=== PATIENT | female | born 1990 | race Caucasian/White ===

== ENCOUNTER 2017-11-23 09:13 | Day surgery (SDC) | payer OTHER ==
[~2017-11-23 09:13] MED LIST: CEFAZOLIN 2 GM/50 ML (PMX) 50 ML IVPB; SOD CHLORIDE 0.9% 1,000 ML IV
[2017-11-23] MEDS ORDERED: PROPOFOL 20 ML (11:43)
[2017-11-23] MEDS ORDERED: LIDOCAINE 2% (SDV) 5 ML INJ (11:43)
[2017-11-23] MEDS ORDERED: CEFAZOLIN 1 GM INJ (11:44)
[2017-11-23] MEDS ORDERED: MEPERIDINE 100 MG INJ (11:44)
[2017-11-23] MEDS: BUPIVACAINE 0.25% (MPF) 30 ML INJ (11:58)
[2017-11-23] MEDS ORDERED: ONDANSETRON 4 MG INJ (12:09)
[2017-11-23] MEDS ORDERED: METOCLOPRAMIDE 10 MG INJ (12:09)
[2017-11-23] MEDS: HYDROCODONE/APAP (5/325) TAB PO (13:14)
== END 2017-11-23 14:25 | disposition home or self-care (01) ==
LOC: SDS 09:13
DX: L72.0 Epidermal cyst (principal)
CPT/HCPCS: 14020; 84703; 88307